=== PATIENT | male | born 1945 | race Caucasian/White ===

== ENCOUNTER 2018-05-27 11:18 | Observation (INO) ==
[2018-05-27] MEDS ORDERED: PROMETHAZINE 25 MG/ML VIAL IV ONE (11:34)
[2018-05-27] MEDS ORDERED: LACTATED RINGERS 1,000 ML IV ONE (11:34)
--- NOTE | 2018-05-27 11:37 | Emergency Department Note ---
Nausea/Vomiting/Diarrhea HPI - General Chief complaint: Nausea/Vomiting/Diarrhea Stated complaint: N/v Time Seen by Provider: 05/27/18 11:29 Source: EMS Mode of arrival: EMS - History of Present Illness HPI Narrative: This patient has developed nausea and generalized weakness today. He had a pain pump removed yesterday. He does have a nerve stimulator in place and is not having any pain of significance now. He said no diarrhea no abdominal pain no chest pain no back pain of significance. MD complaint: nausea Onset (ago): hour(s) - Related Data Home Medications Medication Instructions Recorded Confirmed Aspirin [Shanell Chewable Aspirin] 81 mg PO DAILY 05/27/18 05/27/18 Benazepril HCl [Lotensin] 40 mg PO DAILY 05/27/18 05/27/18 Cholecalciferol (Vitamin D3) 5,000 unit PO DAILY 05/27/18 05/27/18 [Vitamin D3] DULoxetine HCL [Cymbalta] 60 mg PO BID 05/27/18 05/27/18 Hydrochlorothiazide [Oretic] 25 mg PO DAILY 05/27/18 05/27/18 Magnesium Oxide [Magnesium] 250 mg PO DAILY 05/27/18 05/27/18 Multivitamin [Men's Multi-Vitamin] 1 each PO DAILY 05/27/18 05/27/18 Nattokinase 1 tab PO DAILY 05/27/18 05/27/18 Ubiquinol 100 mg PO DAILY 05/27/18 05/27/18 Allergies Allergy/AdvReac Type Severity Reaction Status Date / Time cephalexin [From Keflex] Allergy Mild Rash Verified 05/27/18 11:20 Penicillins Allergy Mild Rash Verified 05/27/18 11:20 Review of Systems All systems ED: reviewed and negative except as stated. Past Medical History - Past Medical History Medical history: Reports: coronary artery disease, hypertension Surgical history ED: Reports: coronary bypass (CABG) - Social History smoking status: Former smoker Physical Exam Limitations: no limitations General appearance: alert Head: atraumatic Eye: Present: normal appearance ENT: normal exam Neck: Present: normal inspection Chest: Present: normal inspection Respiratory: Present: normal lung sounds bilaterally Cardiovascular: Present: regular rate, normal rhythm, normal heart sounds Abdominal: Present: soft. Absent: distention, tenderness Neurological: Present: alert Psychiatric: Present: normal affect, normal mood Skin: Present: warm, dry, intact Course Vital Signs Temperature 98.5 F 05/27/18 11:20 Pulse Rate 93 H 05/27/18 11:20 Respiratory Rate 14 05/27/18 11:20 Blood Pressure 175/98 05/27/18 11:20 Pulse Oximetry (%) 100 05/27/18 11:20 Temperature 98.5 F 05/27/18 11:20 Pulse Rate 117 H 05/27/18 14:44 Respiratory Rate 23 H 05/27/18 14:44 Blood Pressure 197/118 05/27/18 14:31 Pulse Oximetry (%) 96 05/27/18 14:44 Nausea/Vomiting/Diarrhea - [facility] Narrative Medical decision making narrative: This patient's lab work was unremarkable chest x-ray showed a new left lower lobe infiltrate. His heart rate was high from 115 and 150 and his blood pressure was quite high. He had not taken his morning medications. He was developing some restless legs. He felt like he wanted to stay in the hospital and I discussed the case with Dr. Patton who will admit him to the floor. - Lab Data Lab results reviewed: Yes I reviewed the patient's lab results. Result diagrams: 05/27/18 11:32 05/27/18 11:31 Lab Results 05/27/18 05/27/18 05/27/18 Range/Units 11:31 11:32 11:34 WBC 9.2 (4.5-11.0) K/mcL RBC 5.55 (4.50-5.90) M/mcL Hgb 16.4 (13.5-16.5) g/dL Hct 49.7 (41.0-55.0) % POC Hct 52.0 (41.0-55.0) % MCV 89.5 (80.0-100.0) fL MCH 29.4 (26.0-34.0) pg MCHC 32.9 (31.0-36.0) g/dL RDW 14.4 (11.5-14.5) % Plt Count 265 (140-440) K/mcL MPV 8.3 (7.4-10.4) fL Gran % 89.4 H (38.0-78.0) % Lymph % (Auto) 8.7 L (15.5-49.0) % [place] % (Auto) 1.9 (1.0-12.0) % Eos % (Auto) 0 (0.0-7.0) % Baso % (Auto) 0 (0.0-2.0) % Gran # 8.2 H (1.8-8.0) K/mcL Lymph # (Auto) 0.8 L (1.5-4.8) K/mcL [place] # (Auto) 0.2 (0.1-0.9) K/mcL Eos # (Auto) 0 (0.0-0.7) K/mcL Baso # (Auto) 0 (0.0-0.3) K/mcL POC Sodium 141 (133-145) mmol/L Sodium 141 (133-145) mmol/L POC Potassium 3.7 (3.3-5.1) mmol/L Potassium 3.8 (3.3-5.1) mmol/L POC Chloride 103 (96-108) mmol/L Chloride 100 (96-108) mmol/L Carbon Dioxide 21 L (22-30) mmol/L POC Total CO2 23 (22-30) mmol/L Anion Gap 20.0 H (8-16) POC BUN 17 (8-23) mg/dl BUN 15 (8-23) mg/dl Creatinine 0.9 (0.7-1.2) mg/dl POC Creatinine 0.8 (0.7-1.2) mg/dl GFR Calculation 84 Glucose 134 H (70-105) mg/dL POC Glucose 136 H (70-105) mg/dL Calcium 10.7 H (8.6-10.4) mg/dl POC WB Ioniz Calcium 1.19 (1.16-1.32) mmol/L Total Bilirubin 0.9 (0.0-1.0) mg/dL AST 15 (0-37) U/l ALT 7 (0-40) U/l Alkaline Phosphatase 95 (39-117) U/L Troponin T < 0.01 (0-0.03) ng/ml Total Protein 7.9 (5.9-8.4) gm/dL Albumin 4.8 (3.2-5.2) gm/dL Globulin 3.1 (2.2-3.7) gm/dL Albumin/Globulin Ratio 1.5 (1.0-2.3) Urine Color Urine Appearance Urine pH (5.0-9.0) Ur Specific [place] (1.000-1.035) Urine Protein (NEG) mg/dL Urine Glucose (UA) (NEG) mg/dL Urine Ketones (NEG) mg/dL Urine Occult Blood (<0.03) mg/dL Urine Nitrate (NEG) Urine Bilirubin (NEG) mg/dL Urine Urobilinogen (NEG) mg/dL Ur Leukocyte Esterase (NEG) /uL Urine RBC (0-1) /hpf Urine WBC (0-4) /hpf Ur Squamous Epith Cells (0-4) /hpf Urine Bacteria (0) /hpf Urine Mucus (0) /hpf Ur Culture Indicated? 05/27/18 Range/Units 12:55 WBC (4.5-11.0) K/mcL RBC (4.50-5.90) M/mcL Hgb (13.5-16.5) g/dL Hct (41.0-55.0) % POC Hct (41.0-55.0) % MCV (80.0-100.0) fL MCH (26.0-34.0) pg MCHC (31.0-36.0) g/dL RDW (11.5-14.5) % Plt Count (140-440) K/mcL MPV (7.4-10.4) fL Gran % (38.0-78.0) % Lymph % (Auto) (15.5-49.0) % [place] % (Auto) (1.0-12.0) % Eos % (Auto) (0.0-7.0) % Baso % (Auto) (0.0-2.0) % Gran # (1.8-8.0) K/mcL Lymph # (Auto) (1.5-4.8) K/mcL [place] # (Auto) (0.1-0.9) K/mcL Eos # (Auto) (0.0-0.7) K/mcL Baso # (Auto) (0.0-0.3) K/mcL POC Sodium (133-145) mmol/L Sodium (133-145) mmol/L POC Potassium (3.3-5.1) mmol/L Potassium (3.3-5.1) mmol/L POC Chloride (96-108) mmol/L Chloride (96-108) mmol/L Carbon Dioxide (22-30) mmol/L POC Total CO2 (22-30) mmol/L Anion Gap (8-16) POC BUN (8-23) mg/dl BUN (8-23) mg/dl Creatinine (0.7-1.2) mg/dl POC Creatinine (0.7-1.2) mg/dl GFR Calculation Glucose (70-105) mg/dL POC Glucose (70-105) mg/dL Calcium (8.6-10.4) mg/dl POC WB Ioniz Calcium (1.16-1.32) mmol/L Total Bilirubin (0.0-1.0) mg/dL AST (0-37) U/l ALT (0-40) U/l Alkaline Phosphatase (39-117) U/L Troponin T (0-0.03) ng/ml Total Protein (5.9-8.4) gm/dL Albumin (3.2-5.2) gm/dL Globulin (2.2-3.7) gm/dL Albumin/Globulin Ratio (1.0-2.3) Urine Color Yellow Urine Appearance Clear Urine pH 7.0 (5.0-9.0) Ur Specific [place] 1.021 (1.000-1.035) Urine Protein 30 A (NEG) mg/dL Urine Glucose (UA) Negative (NEG) mg/dL Urine Ketones 80 A (NEG) mg/dL Urine Occult Blood Neg (<0.03) mg/dL Urine Nitrate Neg (NEG) Urine Bilirubin Neg (NEG) mg/dL Urine Urobilinogen Neg (NEG) mg/dL Ur Leukocyte Esterase Neg (NEG) /uL Urine RBC 5 H (0-1) /hpf Urine WBC < 1 (0-4) /hpf Ur Squamous Epith Cells 1 (0-4) /hpf Urine Bacteria 0 (0) /hpf Urine Mucus Few (0) /hpf Ur Culture Indicated? No - Radiology Data Radiology results reviewed: Yes I reviewed the patient's radiology results. Disposition Pt seen by [facility]/PA only: No Clinical Impression: Pneumonia Disposition: Xfer As Outpt/Obs ([facility]) Condition: Good Referrals: Janis Ramirez [Primary Care Provider] - Time of Disposition: 14:55
--- NOTE | 2018-05-27 12:03 | XRay Report ---
INDICATION: Weakness TECHNIQUE: AP chest x-ray, portable upright COMPARISON: None FINDINGS: Previous median sternotomy. There are spinal cord stimulator leads. Moderate to severe cardiomegaly. Pulmonary vascularity is mildly prominent consistent with pulmonary congestion. No definite pulmonary edema. There are no septal lines. No alveolar infiltrates. There is mild bronchial wall thickening. This may represent bronchitis or possible mild interstitial edema Focal density in the left retrocardiac region. There is silhouetting of the left hemidiaphragm. Findings are consistent with left lower lobe infiltrate and pneumonia. Left pleural effusion is possible. No evidence for right pleural effusion. IMPRESSION: 1. Cardiomegaly and pulmonary congestion. 2. Increased density in the retrocardiac region consistent with left lower lobe infiltrate Interpreted and Authenticated by: John Mendez 05/27/18
[2018-05-27 12:06] LABS: Basophils # (Auto) 0 K/mcL (0.0-0.3); Basophils % (Auto) 0 % (0.0-2.0); Eosinophils # (Auto) 0 K/mcL (0.0-0.7); Eosinophils % (Auto) 0 % (0.0-7.0); Granulocytes % (Auto) 89.4 % (38.0-78.0); Lymphocytes # (Auto) 0.8 K/mcL (1.5-4.8); Lymphocytes % (Auto) 8.7 % (15.5-49.0); Mean Cell Volume 89.5 fL (80.0-100.0); Mean Corpuscular HGB Conc 32.9 g/dL (31.0-36.0); Mean Corpuscular Hemoglobin 29.4 pg (26.0-34.0); Monocytes # (Auto) 0.2 K/mcL (0.1-0.9); Monocytes % (Auto) 1.9 % (1.0-12.0); Platelet Count 265 K/mcL (140-440); RBC 5.55 M/mcL (4.50-5.90); Red Cell Distribution Width 14.4 % (11.5-14.5)
[2018-05-27 12:29] LABS: ALT/SGPT 7 U/l (0-40); Albumin 4.8 gm/dL (3.2-5.2); Albumin/Globulin Ratio 1.5 (1.0-2.3); Alkaline Phosphatase 95 U/L (39-117); Blood Urea Nitrogen 15 mg/dl (8-23)
[2018-05-27 14:12] LABS: Appearance,Urine CLEAR; Bacteria,Urine 0 /hpf (0); Bilirubin,Urine NEG (NEG); Color,Urine YELLOW; Glucose,Urine (UA) NEGATIVE (NEG); Leukocyte Esterase,Urine NEG /uL (NEG); Mucus,Urine FEW /hpf (0); Protein,Urine 30 mg/dL (NEG); Specific Gravity,Urine 1.021 (1.000-1.035); Urine Blood NEG mg/dL (<0.03); Urine RBC 5 /hpf (0-1); Urine Squamous Epithelial Cell 1 /hpf (0-4); Urine WBC < 1 /hpf (0-4); Urobilinogen,Urine NEG (NEG)
[2018-05-27] MEDS ORDERED: AZITHROMYCIN 500 MG in DEXTROSE 5% IN WATER 250 ML IV ONE (14:50)
[2018-05-27] MEDS: DIAZEPAM 5 MG/ML VIAL IV ONE ×2 (15:30→15:31)
[2018-05-27] MEDS ORDERED: DIAZEPAM 5 MG/ML VIAL ONE (15:34)
--- NOTE | 2018-05-27 15:44 | Internal Med History&Physical ---
Medical - H&P: HPI Patient information: Note initiated : 05/27/18 at 3:44 pm Service Date, if different from initiated Date: [] Patient: Carlos South 73 y/o M admitted on for N/V. Chief Complaint: Nausea, restlessness History of present illness: Mr. South is a 73 year old M of chronic low back pain that is post- explantation of a pain pump yesterday, history of coronary disease, history of treated hypertension, history of hiatal hernia and gastritis who presents the ED with nausea. History is obtained in speaking with the patient, as well as reviewing pain clinic notes which were obtained. The patient had his pain pump removed yesterday, according to notes from 2017, he was receiving combination of hydromorphone and clonidine. The patient tells me he been off oral opioids since last year, after weaning them down. He subsequently had a nerve stimulator placed and his pain pump was weaned off, however he is told yesterday when his removed and he was still receiving some medication. Patient states that he awoke over night severely nauseated. This was not associated with emesis. He had some burning epigastric abdominal pain. He had no associated diarrhea. He he had been given a prescription for hydromorphone as well as for diazepam for any withdrawal symptoms after having the morphine pump removed. He tried to take an oral hydromorphone, he became more nauseated , had trouble keeping it down. Subsequently he noted that he started shaking in both his arms and legs. He was also generally weak, had difficulty standing and walking. Due to his symptoms, EMS was summoned. His temperature is 99.1. Upon arrival in the ED, he was mildly tachycardic, has had a variable heart rate from the 80 90 range to 258175 range. He appears to have been in sinus rhythm. He's been significantly hypertensive with systolics up to 190 at times. Patient received Zofran, some improvement in his nausea. He still feels quite restless. He's had minimal by mouth intake. He is trying to drink water which increased his nausea, though after Zofran he was able to keep his morning duloxetine and lisinopril down when he was given this afternoon. The patient does have a history of gastritis in the past, but is not currently taking any acid suppression medication. No history of ulcer. He started ibuprofen in the last week or 2 in anticipation of discontinuing the morphine pain pump. He's been taking 1 or 2 [id number] doses per day. He also has had a hiatal hernia which was repaired. His legs feel weak and he feels restless all over. In the emergency department, he was treated with anti-emetics. This had some improvement in his symptoms. Laboratory workup was generally unremarkable, chest radiograph did suggest a retrocardiac infiltrate. Patient has had no dyspnea. He's had some sinus congestion and drainage, and has a cough productive of phlegm which is clear/white, particularly at night. No yellow or greenish sputum. As noted he had some hemodynamic instability. He is currently complaining of restlessness, his legs become more restless (no history of restless leg syndrome). He's had no diaphoresis, no yawning, no abdominal pain except for the burning pain is noted. No diarrhea. He has noticed no blood in his stools recently. He's had no hematemesis. I was contacted in regards to admitting the patient for pneumonia. While he does have changes on radiograph, he has clear breath sounds without rales and his presentation appears more consistent with opioid withdrawal. He's been hospitalized observation for management of his symptoms. All systems: reviewed and no additional remarkable complaints except as stated Medical - H&P: PMH Medical history: Hypertension Coronary artery disease Status post CABG 4 in 1994 Status post PCI with stent in 2014 Gastritis and GERD Urinary incontinence Chronic low back pain Scoliosis History of bilateral retinal disruption PTSD Depression Obesity Surgical history: CABG 1994 History of knee arthroscopically History of scleral buckling surgery in 2005, bilateral Intraspinal medical pump placed in 2001 2002 History of excision of benign cyst breast Pertinent family history: There is a history of hypertension and heart disease in his mother and siblings. Brother has diabetes. His father had stomach cancer. Social history: Patient smoked for a few years, stopped in 1969. He does not drink alcohol. Medical - H&P: Meds Home Medications Medication Instructions Recorded Confirmed Type Aspirin [Shanell Chewable Aspirin] 81 mg PO DAILY 05/27/18 05/27/18 History Benazepril HCl [Lotensin] 40 mg PO DAILY 05/27/18 05/27/18 History Cholecalciferol (Vitamin D3) 5,000 unit PO DAILY 05/27/18 05/27/18 History [Vitamin D3] DULoxetine HCL [Cymbalta] 60 mg PO BID 05/27/18 05/27/18 History Hydrochlorothiazide [Oretic] 25 mg PO DAILY 05/27/18 05/27/18 History Magnesium Oxide [Magnesium] 250 mg PO DAILY 05/27/18 05/27/18 History Multivitamin [Men's Multi-Vitamin] 1 each PO DAILY 05/27/18 05/27/18 History Nattokinase 1 tab PO DAILY 05/27/18 05/27/18 History Ubiquinol 100 mg PO DAILY 05/27/18 05/27/18 History Allergies Allergy/AdvReac Type Severity Reaction Status Date / Time cephalexin [From Keflex] Allergy Mild Rash Verified 05/27/18 11:20 Penicillins Allergy Mild Rash Verified 05/27/18 11:20 Medical - H&P: Exam - Constitutional Vitals: Temp Pulse Resp BP Pulse Ox 98.5 F 117 H 23 H 197/118 96 05/27/18 11:20 05/27/18 14:44 05/27/18 14:44 05/27/18 14:31 05/27/18 14:44 Exam: GENERAL: Alert, oriented, uncomfortable and restless, lying in gurney with washcloth on his forehead. Cooperative, appears stated age. HEENT: Atraumatic. Pupils 5 mm and sclerae reactive bilaterally, conjunctiva clear, no scleral icterus. Hearing grossly intact. Oropharynx with moist mucous membranes, no lip or gum lesions, no pharyngeal erythema or exudate. Tongue midline, palate rises symmetrically. NECK: Supple without meningismus, no thyromegaly RESPIRATORY: Breath sounds clear bilaterally without wheezes or rhonchi. Respiratory effort is unlabored. CARDIOVASCULAR: Tachycardic, generally regular, some ectopy. No murmur gallop or rub. No peripheral edema. Carotid pulses 2+ without bruit. GI: Abdomen soft, obese, nontender; right lower quadrant/flank dressing in place where, dressing dry. No guarding or rebound. Active bowel sounds are present. No hepatosplenomegaly. MUSCULOSKELETAL: No joint erythema or swelling. No cyanosis or clubbing. SKIN: Intact, warm, dry. Mild piloerection on the forearms bilaterally. NEUROLOGIC: Cranial nerves II through XII grossly intact. Muscle mass normal. Strength 5-/5 in the upper and lower extremities with a generalized weakness. Sensation intact to light touch bilaterally. Deep tendon reflexes 2+ at the biceps and patella. PSYCHIATRIC: Alert, oriented x3, normal insight. Medical - H&P: Reslt - Labs CBC & Chem 7: 05/27/18 11:32 05/27/18 11:31 Labs: Short CBC 05/27/18 Range/Units 11:32 WBC 9.2 (4.5-11.0) K/mcL Hgb 16.4 (13.5-16.5) g/dL Hct 49.7 (41.0-55.0) % Plt Count 265 (140-440) K/mcL BMP 05/27/18 11:31 Sodium 141 Potassium 3.8 Chloride 100 Carbon Dioxide 21 L BUN 15 Creatinine 0.9 Glucose 134 H Calcium 10.7 H Cardiac Enzymes 05/27/18 Range/Units 11:34 Troponin T < 0.01 (0-0.03) ng/ml Liver Function 05/27/18 Range/Units 11:31 Total Bilirubin 0.9 (0.0-1.0) mg/dL AST 15 (0-37) U/l ALT 7 (0-40) U/l Alkaline Phosphatase 95 (39-117) U/L Albumin 4.8 (3.2-5.2) gm/dL Urine 05/27/18 Range/Units 12:55 Urine Color Yellow Urine Appearance Clear Urine pH 7.0 (5.0-9.0) Ur Specific [place] 1.021 (1.000-1.035) Urine Protein 30 A (NEG) mg/dL Urine Glucose (UA) Negative (NEG) mg/dL - EKG Data -: EKG Reviewed by Myself EKG shows normal: sinus rhythm (with bigeminy), ST-T waves (<1mm ST depression in lateral leads) Rate: tachycardia (108) - Imaging and Cardiology Chest x-ray Status: image reviewed by me Additional comments: IMPRESSION: 1. Cardiomegaly and pulmonary congestion. 2. Increased density in the retrocardiac region consistent with left lower lobe infiltrate Medical - H&P: A/P (1) Nausea Current visit: Yes Status: Acute - Narrative A/P Narrative: 73-year-old male presenting with severe nausea. Generally unrevealing workup, though radiograph suggests left lower lobe infiltrate. Nausea. Given the time course, with the stopping of chronic (though low dose) opioid spinal infusion removal of pump, combined with restlessness, piloerection , myosis suggests acute opioid withdrawal. Does not have abdominal pain or diarrhea which can also be seen. Alternatively, could be related to gastritis, which she has a history, using nonsteroidals. No leukocytosis or abdominal pain to suggest gastroenteritis or colitis. Possibly related to pneumonia, though given history suspect more related to opioid withdrawal. Plan: -Hospitalize on observation -Oral opioid for symptoms, replace with IV if unable to take by mouth -Oral diazepam for agitation/restlessness, IV if unable to take by mouth -Zofran for nausea, Compazine if ineffective -Clonidine for symptoms and for hypertension. Possible pneumonia. Left lower lobe infiltrate, but no leukocytosis, no dyspnea , no purulent sputum. Has received initial dose of antibiotics in the ED. Plan: Check procalcitonin, make further decision antibiotics if it is elevated. Hypertension with elevated blood pressure presentation. On benazepril and HCTZ at home. Missing those medications likely would not result in such elevated blood pressure. Again consistent with withdrawal. However the patient had been receiving spinal clonidine, this could represent clonidine withdrawal as well Plan: Clonidine when necessary for hypertension. Depression with PTSD. Plan: Continue duloxetine. CODE STATUS: Full code Prophylaxis: Low molecular weight heparin.
[2018-05-27] MEDS ORDERED: ONDANSETRON 4 MG/2 ML VIAL IV PRN (16:51)
[2018-05-27] MEDS ORDERED: IBUPROFEN 600 MG TABLET PO PRN (16:51)
[2018-05-27] MEDS ORDERED: PANTOPRAZOLE 40 MG VIAL IV ONE (16:51)
[2018-05-27] MEDS ORDERED: HYDROmorphone 2 MG TABLET PO PRN (16:51)
[2018-05-27] MEDS ORDERED: ACETAMINOPHEN 325 MG TABLET PO PRN (16:51)
[2018-05-27] MEDS ORDERED: HYDROmorphone 2 MG/ML VIAL IV PRN (16:51)
[2018-05-27] MEDS ORDERED: PROCHLORPERAZINE 10 MG/2 ML VIAL IV PRN (16:51)
[2018-05-27] MEDS ORDERED: cloNIDine HCL 0.1 MG TABLET PO PRN (16:51)
[2018-05-27] MEDS ORDERED: DIAZEPAM 2 MG TABLET PO PRN (16:51)
[2018-05-27] MEDS ORDERED: DIAZEPAM 5 MG/ML VIAL IV PRN (16:51)
[2018-05-27] MEDS: 0.9 % SODIUM CHLORIDE 1,000 ML IV SCH (17:44)
[2018-05-27] MEDS: DOCUSATE SODIUM 100 MG CAPSULE PO SCH (20:07)
[2018-05-27] MEDS: 0.9 % SODIUM CHLORIDE 10 ML SYRINGE IV SCH (20:16)
[2018-05-27] MEDS ORDERED: SENNOSIDES 1 TABLET PO SCH (21:00)
[2018-05-27] MEDS ORDERED: DULoxetine 30 MG CAPSULE PO ONE (21:26)
[2018-05-28] MEDS: 0.9 % SODIUM CHLORIDE 1,000 ML IV SCH (01:44)
[2018-05-28] MEDS: 0.9 % SODIUM CHLORIDE 10 ML SYRINGE IV SCH (05:42)
[2018-05-28 05:55] LABS: Basophils # (Auto) 0 K/mcL (0.0-0.3); Basophils % (Auto) 0.3 % (0.0-2.0); Eosinophils # (Auto) 0 K/mcL (0.0-0.7); Eosinophils % (Auto) 0.1 % (0.0-7.0); Granulocytes % (Auto) 72.5 % (38.0-78.0); Lymphocytes # (Auto) 1.9 K/mcL (1.5-4.8); Lymphocytes % (Auto) 20.6 % (15.5-49.0); Mean Cell Volume 90.1 fL (80.0-100.0); Mean Corpuscular HGB Conc 32.5 g/dL (31.0-36.0); Mean Corpuscular Hemoglobin 29.3 pg (26.0-34.0); Monocytes # (Auto) 0.6 K/mcL (0.1-0.9); Monocytes % (Auto) 6.5 % (1.0-12.0); Platelet Count 239 K/mcL (140-440); RBC 4.85 M/mcL (4.50-5.90); Red Cell Distribution Width 14.3 % (11.5-14.5)
[2018-05-28 06:34] LABS: Blood Urea Nitrogen 11 mg/dl (8-23)
[2018-05-28] MEDS ORDERED: PANTOPRAZOLE 40 MG VIAL IV SCH (07:30)
[2018-05-28] MEDS: DOCUSATE SODIUM 100 MG CAPSULE PO SCH (08:21)
[2018-05-28] MEDS ORDERED: LISINOPRIL 20 MG TABLET PO SCH (09:00)
[2018-05-28] MEDS ORDERED: MULTIVIT,THER IRON,CA,FA & MIN 1 TABLET PO SCH (09:00)
[2018-05-28] MEDS ORDERED: HYDROCHLOROTHIAZIDE 25 MG TABLET PO SCH (09:00)
[2018-05-28] MEDS ORDERED: ENOXAPARIN 40 MG/0.4 ML SYRINGE SQ SCH (09:00)
[2018-05-28] MEDS ORDERED: MAGNESIUM OXIDE 400 MG TABLET PO SCH (09:00)
[2018-05-28] MEDS ORDERED: ASPIRIN 81 MG TAB.CHEW PO SCH (09:00)
[2018-05-28] MEDS ORDERED: DULoxetine 30 MG CAPSULE PO SCH (09:00)
--- NOTE | 2018-05-28 11:00 | XRay Report ---
INDICATION: Opioid withdrawal. Cough and fever. TECHNIQUE: PA and lateral upright chest x-ray COMPARISON: Previous chest x-ray dated 05/27/2018 FINDINGS: Previous median sternotomy and coronary artery bypass procedure. Findings consistent with moderate to large hiatal hernia. There are spinal cord stimulator leads in the mid thoracic spine. No acute or focal pulmonary parenchymal infiltrate. No pneumonia. Heart size is enlarged. No pulmonary congestion or pulmonary edema. No pleural fluid. Multilevel degenerative disc disease in the thoracic spine. No acute compression fracture IMPRESSION: 1. Cardiomegaly. No pulmonary congestion or pulmonary edema 2. No acute pulmonary parenchymal infiltrate 3. Focal density consistent with hiatal hernia Interpreted and Authenticated by: John Mendez 05/28/18
--- NOTE | 2018-05-28 11:31 | Discharge Summary ---
Medical - DS: Prov Patient information: Note initiated : 05/28/18 at 11:27 am Service Date, if different from initiated Date: [] Patient: Carlos South 73 y/o M admitted on 05/27/18 for Opiod Withdrawl, Poss Pneumonia. Date of admission: 05/27/18 16:35 Discharge date: 05/28/18 Primary care physician: Janis Ramirez Admitting clinician: Mer Hernandez Consults: 05/27/18 Consult to Physician [CONS] Stat Comment: Consulting Provider: Mer Hernandez Reason For Exam: Physician to Consult Discharging clinician: Mer Hernandez Medical - DS: Meds - Discharge Medications Active and Home Medications: Home Medications Aspirin [Shanell Chewable Aspirin] 81 mg PO DAILY 05/27/18 [History Confirmed 03/06 Last Taken 05/25/18 08:00] Benazepril HCl [Lotensin] 40 mg PO DAILY 05/27/18 [History Confirmed 05/27/18 Last Taken 05/27/18 15:00] Cholecalciferol (Vitamin D3) [Vitamin D3] 5,000 unit PO DAILY 05/27/18 [History Confirmed 05/27/18 Last Taken 05/25/18 08:00] DULoxetine HCL [Cymbalta] 60 mg PO BID 05/27/18 [History Confirmed 05/27/18 Last Taken 05/27/18 15:00] Hydrochlorothiazide [Oretic] 25 mg PO DAILY 05/27/18 [History Confirmed Last Taken 05/27/18 15:00] Magnesium Oxide [Magnesium] 250 mg PO DAILY 05/27/18 [History Confirmed Last Taken 05/25/18 08:00] Multivitamin [Men's Multi-Vitamin] 1 each PO DAILY 05/27/18 [History Confirmed 05/27/18 Last Taken 05/25/18 08:00] Nattokinase 1 tab PO DAILY 05/27/18 [History Confirmed 05/27/18 Last Taken 05/25 08:00] Ubiquinol 100 mg PO DAILY 05/27/18 [History Confirmed 05/27/18 Last Taken 08:00] Medical - DS: Hosp Hospital course: Presentation: Mr. South is a 73 year old M of chronic low back pain that is post- explantation of a pain pump yesterday, history of coronary disease, history of treated hypertension, history of hiatal hernia and gastritis who presents the ED with nausea. History is obtained in speaking with the patient, as well as reviewing pain clinic notes which were obtained. The patient had his pain pump removed yesterday, according to notes from 2017, he was receiving combination of hydromorphone and clonidine. The patient tells me he been off oral opioids since last year, after weaning them down. He subsequently had a nerve stimulator placed and his pain pump was weaned off, however he is told yesterday when his removed and he was still receiving some medication. Patient states that he awoke over night severely nauseated. This was not associated with emesis. He had some burning epigastric abdominal pain. He had no associated diarrhea. He he had been given a prescription for hydromorphone as well as for diazepam for any withdrawal symptoms after having the morphine pump removed. He tried to take an oral hydromorphone, he became more nauseated , had trouble keeping it down. Subsequently he noted that he started shaking in both his arms and legs. He was also generally weak, had difficulty standing and walking. Due to his symptoms, EMS was summoned. His temperature is 99.1. Upon arrival in the ED, he was mildly tachycardic, has had a variable heart rate from the 80 90 range to 517643 range. He appears to have been in sinus rhythm. He's been significantly hypertensive with systolics up to 190 at times. Patient received Zofran, some improvement in his nausea. He still feels quite restless. He's had minimal by mouth intake. He is trying to drink water which increased his nausea, though after Zofran he was able to keep his morning duloxetine and lisinopril down when he was given this afternoon. The patient does have a history of gastritis in the past, but is not currently taking any acid suppression medication. No history of ulcer. He started ibuprofen in the last week or 2 in anticipation of discontinuing the morphine pain pump. He's been taking 1 or 2 [id number] doses per day. He also has had a hiatal hernia which was repaired. His legs feel weak and he feels restless all over. In the emergency department, he was treated with anti-emetics. This had some improvement in his symptoms. Laboratory workup was generally unremarkable, chest radiograph did suggest a retrocardiac infiltrate. Patient has had no dyspnea. He's had some sinus congestion and drainage, and has a cough productive of phlegm which is clear/white, particularly at night. No yellow or greenish sputum. As noted he had some hemodynamic instability. He is currently complaining of restlessness, his legs become more restless (no history of restless leg syndrome). He's had no diaphoresis, no yawning, no abdominal pain except for the burning pain is noted. No diarrhea. He has noticed no blood in his stools recently. He's had no hematemesis. I was contacted in regards to admitting the patient for pneumonia. While he does have changes on radiograph, he has clear breath sounds without rales and his presentation appears more consistent with opioid withdrawal. He's been hospitalized observation for management of his symptoms. Course: The patient did well overnight, required a dose of diazepam for withdrawal symptoms, required 1 dose of when necessary clonidine. By the following morning he was alert, not having restlessness, vital signs were stable. He feels he can continue to manage any remainder symptoms at home with the prescriptions for hydromorphone and diazepam that were supplied by Dr. Cobos at the time of the pump removal. His elevated blood pressure likely represented withdrawal and not secondary to clonidine cessation. His initial radiographs just a left lower lobe infiltrate. His pro calcitonin was<0.05, and follow-up two-view radiograph did not show infiltrate, but did show density consistent with hiatal hernia. A diagnosis of pneumonia ultimately was not made, he was treated with no further antibiotics. Discharge diagnosis: Acute opioid withdrawal - Time Spent with Patient Total time spent providing and/or coordinating discharge services: Greater than 30 minutes Medical - DS: Exam - Constitutional Vitals: Vital Signs Temp Pulse Pulse Resp BP BP BP 05/28/18 11:19 98.1 F 18 137/83 05/28/18 06:26 98.9 F 18 130/80 05/28/18 03:35 97.3 F 71 16 141/73 05/27/18 23:57 97.6 F 90 20 147/78 05/27/18 20:00 97.7 F 96 H 24 H 164/79 05/27/18 16:35 98.2 F 105 H 20 180/83 05/27/18 16:30 98.5 F 103 H 26 H 167/103 05/27/18 16:29 103 H 26 H 05/27/18 16:16 23 H 167/103 05/27/18 16:07 145 H 21 05/27/18 16:01 108 H 10 L 165/95 05/27/18 15:46 113 H 21 169/104 05/27/18 15:31 123 H 17 176/108 05/27/18 15:17 115 H 22 190/112 05/27/18 15:02 94 H 22 125/113 05/27/18 14:46 101 H 23 H 170/132 05/27/18 14:44 117 H 23 H 05/27/18 14:31 108 H 24 H 197/118 05/27/18 14:16 75 7 L 184/105 05/27/18 14:01 86 15 174/118 05/27/18 13:46 116 H 20 186/113 05/27/18 13:31 101 H 23 H 178/105 05/27/18 13:16 117 H 19 176/101 05/27/18 13:06 12 178/115 05/27/18 12:11 106 H 9 L 05/27/18 12:08 94 H 0 L 175/96 Pulse Ox 05/28/18 11:19 97 05/28/18 06:26 97 05/28/18 03:35 97 05/27/18 23:57 97 05/27/18 20:00 96 05/27/18 16:35 97 05/27/18 16:30 95 05/27/18 16:29 95 05/27/18 16:16 05/27/18 16:07 97 05/27/18 16:01 94 05/27/18 15:46 94 05/27/18 15:31 94 05/27/18 15:17 96 05/27/18 15:02 97 05/27/18 14:46 97 05/27/18 14:44 96 05/27/18 14:31 95 05/27/18 14:16 95 05/27/18 14:01 94 05/27/18 13:46 97 05/27/18 13:31 95 05/27/18 13:16 96 05/27/18 13:06 05/27/18 12:11 95 05/27/18 12:08 95 Intake and Output 05/27/18 05/28/18 05/28/18 21:59 05:59 13:59 Intake Total 1250 / 1250 1325 / 1325 1120 / 1120 Output Total 1450 / 1450 1326 / 1326 200 / 200 Balance -200 / -200 -1 / -1 920 / 920 Intake: IV 1250 / 1250 1000 / 1000 1000 / 1000 Sodium Chloride 0.9% 1,000 ml @ 1000 / 1000 1000 / 1000 125 mls/hr IV .Q8H [facility] Rx#: [id number] Zithromax 500 mg In Dextrose 5% 250 / 250 in Water 250 ml @ 250 mls/hr IV ONCE ONE Rx#:[id number] Lactated Ringers 1,000 ml @ 1000 / 1000 Wide Open IV BOLUS ONE Rx#: [id number] Oral 325 / 325 120 / 120 Output: Void Amount 1450 / 1450 1325 / 1325 200 / 200 # of times incontinent of urine Other: Meal Breakfast Percent of Meal Consumed 0% Urine Appearance Clear Clear Urine Color Pale Pale Weight 231 lb Additional comments: General: No acute distress, good spirits Chest: Clear, no rales, good air movement Cardiorespiratory: Regular Abdomen: Soft, nontender Neuro: Alert, oriented to person place and situation Medical - DS: Data Labs on day of discharge: Labs from last 24 hours 05/28/18 05/28/18 05/27/18 04:26 04:26 17:00 WBC 9.4 RBC 4.85 Hgb 14.2 Hct 43.7 POC Hct MCV 90.1 MCH 29.3 MCHC 32.5 RDW 14.3 Plt Count 239 MPV 8.4 Gran % 72.5 Lymph % (Auto) 20.6 Hill % (Auto) 6.5 Eos % (Auto) 0.1 Baso % (Auto) 0.3 Gran # 6.8 Lymph # (Auto) 1.9 Hill # (Auto) 0.6 Eos # (Auto) 0 Baso # (Auto) 0 POC Sodium Sodium 143 POC Potassium Potassium 3.5 POC Chloride Chloride 106 Carbon Dioxide 26 POC Total CO2 Anion Gap 11.0 POC BUN BUN 11 Creatinine 0.9 POC Creatinine GFR Calculation 84 Glucose 103 POC Glucose Calcium 9.7 POC WB Ioniz Calcium Total Bilirubin AST ALT Alkaline Phosphatase Troponin T Total Protein Albumin Globulin Albumin/Globulin Ratio Procalcitonin < 0.05 Urine Color Urine Appearance Urine pH Ur Specific Hunt Urine Protein Urine Glucose (UA) Urine Ketones Urine Occult Blood Urine Nitrate Urine Bilirubin Urine Urobilinogen Ur Leukocyte Esterase Urine RBC Urine WBC Ur Squamous Epith Cells Urine Bacteria Urine Mucus Ur Culture Indicated? 05/27/18 05/27/18 05/27/18 13:01 12:55 11:34 WBC RBC Hgb Hct POC Hct MCV MCH MCHC RDW Plt Count MPV Gran % Lymph % (Auto) Hill % (Auto) Eos % (Auto) Baso % (Auto) Gran # Lymph # (Auto) Hill # (Auto) Eos # (Auto) Baso # (Auto) POC Sodium Sodium POC Potassium Potassium POC Chloride Chloride Carbon Dioxide POC Total CO2 Anion Gap POC BUN BUN Creatinine POC Creatinine GFR Calculation Glucose POC Glucose Calcium POC WB Ioniz Calcium Total Bilirubin AST ALT Alkaline Phosphatase Troponin T < 0.01 Total Protein Albumin Globulin Albumin/Globulin Ratio Procalcitonin Urine Color Pending Yellow Urine Appearance Pending Clear Urine pH Pending 7.0 Ur Specific Hunt Pending 1.021 Urine Protein Pending 30 A Urine Glucose (UA) Pending Negative Urine Ketones Pending 80 A Urine Occult Blood Pending Neg Urine Nitrate Pending Neg Urine Bilirubin Pending Neg Urine Urobilinogen Pending Neg Ur Leukocyte Esterase Pending Neg Urine RBC 5 H Urine WBC < 1 Ur Squamous Epith Cells 1 Urine Bacteria 0 Urine Mucus Few Ur Culture Indicated? No 05/27/18 05/27/18 11:32 11:31 WBC 9.2 RBC 5.55 Hgb 16.4 Hct 49.7 POC Hct 52.0 MCV 89.5 MCH 29.4 MCHC 32.9 RDW 14.4 Plt Count 265 MPV 8.3 Gran % 89.4 H Lymph % (Auto) 8.7 L Hill % (Auto) 1.9 Eos % (Auto) 0 Baso % (Auto) 0 Gran # 8.2 H Lymph # (Auto) 0.8 L Hill # (Auto) 0.2 Eos # (Auto) 0 Baso # (Auto) 0 POC Sodium 141 Sodium 141 POC Potassium 3.7 Potassium 3.8 POC Chloride 103 Chloride 100 Carbon Dioxide 21 L POC Total CO2 23 Anion Gap 20.0 H POC BUN 17 BUN 15 Creatinine 0.9 POC Creatinine 0.8 GFR Calculation 84 Glucose 134 H POC Glucose 136 H Calcium 10.7 H POC WB Ioniz Calcium 1.19 Total Bilirubin 0.9 AST 15 ALT 7 Alkaline Phosphatase 95 Troponin T Total Protein 7.9 Albumin 4.8 Globulin 3.1 Albumin/Globulin Ratio 1.5 Procalcitonin Urine Color Urine Appearance Urine pH Ur Specific Hunt Urine Protein Urine Glucose (UA) Urine Ketones Urine Occult Blood Urine Nitrate Urine Bilirubin Urine Urobilinogen Ur Leukocyte Esterase Urine RBC Urine WBC Ur Squamous Epith Cells Urine Bacteria Urine Mucus Ur Culture Indicated? - Imaging and Cardiology Chest x-ray Additional comments: CXR, 2V 05/28/2018 IMPRESSION: 1. Cardiomegaly. No pulmonary congestion or pulmonary edema 2. No acute pulmonary parenchymal infiltrate 3. Focal density consistent with hiatal hernia CXR, 1V 05/27/2018 IMPRESSION: 1. Cardiomegaly and pulmonary congestion. 2. Increased density in the retrocardiac region consistent with left lower lobe infiltrate Medical - DS: A/P - Patient/Caregiver Discharge Instructions Activity: increase activity as tolerated Diet: Regular Diet - Problem Maintenance (1) Nausea Status: Resolved - Follow up Plan Follow up with: Janis Ramirez [Primary Care Provider] - Disposition: Home, Self-Care Prognosis: Good Rehab Potential: Good Overall status at discharge: patient is back to baseline Medical - DS: Qual - VTE Deep Vein Thrombosis/Pulmonary Embolism Present on Admission: No
== END 2018-05-28 12:40 | disposition home or self-care (01) ==
LOC: ED 11:18 → MEDSUR 11:18
PROVIDERS: ADMIT Internal Medicine; ATTEND Internal Medicine
CPT/HCPCS: 80047; 84145; 85014; G0378; J0456; J1650; J2405; J2550; J7030; J7060; J7120